=== PATIENT | female | born 1965 | race Caucasian/White ===

== ENCOUNTER 2016-07-16 07:09 | Day surgery (SDC) | payer OTHER ==
[~2016-07-16] VITALS: Ht 152.4 cm; Wt 59.0 kg
[~2016-07-16 07:09] MED LIST: [UNRECOGNIZED DRUG - CODE] PO
[2016-07-16 08:17] LABS: INR 1.1 (0.8-1.2); PARTIAL THROMBOPLASTIN TIME 28.4 secs (22-35.6); PROTHROMBIN TIME 10.2 secs (10.8-13.4)
[2016-07-16 08:21] LABS: ALBUMIN 3.6 g/dL (3.4-5.0); BILIRUBIN,DIRECT 0.1 mg/dL (0.0-0.3); TOTAL BILIRUBIN 0.5 mg/dL (0.0-1.0); TOTAL PROTEIN, SERUM 7.6 g/dL (6.4-8.2)
[2016-07-16 08:30] LABS: HEMATOCRIT 44.6 % (36-48); HEMOGLOBIN 14.4 g/dL (12.0-16.0); MEAN CORPUSCULAR HEMOGLOBIN 26 pg (27-31); MEAN CORPUSCULAR HGB CONC 32 g/dL (33-37); MEAN CORPUSCULAR VOLUME 81 fL (80-94); PLATELET COUNT (AUTO) 272 K/uL (140-450); RED BLOOD CELL COUNT(AUTO) 5.51 MIL/uL (4.20-5.40); RED CELL DISTRIBUTION WIDTH 12.7 % (11.6-13.7); WHITE BLOOD COUNT (AUTO) 3.3 K/uL (4.8-10.8)
[2016-07-16] MEDS ORDERED: LIDOCAINE 2% 1000 MG/50 ML VIAL INJ ONE (08:32)
[2016-07-16 09:05] LABS: PLATELET ESTIMATE ADEQUATE
[2016-07-16] MEDS ORDERED: ANTIBIO (09:16)
[2016-07-16] MEDS ORDERED: ANTIBIOTIC (09:16)
[2016-07-16 09:51] LABS: BAND % (MANUAL) 0 % (0-8); BASOPHILS % (MANUAL) 0 % (0-2); EOSINOPHILS % (MANUAL) 3 % (0-4); LYMPHOCYTES % (MANUAL) 44 % (20-46); MONOCYTES % (MANUAL) 10 % (5-12); NEUTROPHILS % (MANUAL) 43 (43-65)
== END 2016-07-16 10:05 | disposition home or self-care (01) ==
LOC: MDS 07:09 → MMU 07:10 → MDS 10:05
PROVIDERS: ATTEND Internal Medicine Gastroenterology
DX: B19.20 Unspecified viral hepatitis C without hepatic coma (principal); Z90.710 Acquired absence of both cervix and uterus; F41.8 Other specified anxiety disorders; F17.210 Nicotine dependence, cigarettes, uncomplicated
CPT/HCPCS: 36415; 47000; 76942; 80076; 85025; 85610; 85730; 87522; J2001; Q0092